=== PATIENT | female | born 1975 | race Caucasian/White ===

== ENCOUNTER → 2019-05-02 08:48 | Outpatient (CLI) | payer OTHER, MEDICAID, SELFPAY ==
--- NOTE | 2019-05-02 | DI.NM.S_ITS ---
PROCEDURE: ND UPTAKE AND SCAN RADIOPHARMACEUTICAL: 370 ?Ci I-123 sodium iodide by mouth. INDICATIONS: Toxic nodular goiter TECHNIQUE: I-123 sodium iodide was administered orally. Anterior neck images were obtained, and iodine uptake by the thyroid gland calculated using fire fighting equipment specialist's software. COMPARISON: [place], [place], THYROID UPTAKE AND SCAN, 08/03/2017, 9:36. FINDINGS: Morphology: The left thyroid lobe is again noted to be enlarged with overall increased uptake in mid to lower pole not significantly changed from previous study and is correlating with a large complex solid and cystic mass in this region seen on previous ultrasound. Suppressed activity in right thyroid lobe is again seen and unchanged. Uptake: 6 hour thyroid uptake is 30.5%, normal ranges are from 6-18%. 24 hour thyroid uptake is 44.5%; normal ranges are from 10-30%. IMPRESSION: 1. Increased uptake in mid total lower pole of left thyroid lobe likely related to large complex solid and cystic mass seen on previous ultrasound in this region. Focal decreased activity in the inferior pole of left thyroid lobe is again seen and unchanged likely related to cystic component. Overall appearance of bilateral thyroid lobes are not significantly changed from prior study in 2018. 2. Elevated 6 hour and 24-hour radioactive iodine uptakes. 3. Suppressed activity in right thyroid lobe. Dictated by: Jovan Rubi M.D. on 05/03/2019 at 11:10 Approved by: Jovan Rubi M.D. on 05/03/2019 at 11:16
== END ==
PROVIDERS: PCP Family Medicine; Visit Provider Internal Medicine Endocrinology, Diabetes & Metabolism
DX: E05.20 Thyrotoxicosis with toxic multinodular goiter without thyrotoxic crisis or storm (principal)
CPT/HCPCS: 78014; A9516

== ENCOUNTER → 2021-01-29 11:44 | Outpatient (CLI) | payer OTHER, MEDICAID, SELFPAY ==
[2021-01-29 20:43] LABS: Thyroid Stimulating Hormone 0.766 uIU/mL (0.47-4.68)
== END ==
PROVIDERS: PCP Family Medicine; Visit Provider Internal Medicine Endocrinology, Diabetes & Metabolism
DX: E89.0 Postprocedural hypothyroidism (principal)
CPT/HCPCS: 84443

== ENCOUNTER → 2021-06-05 09:33 | Outpatient (CLI) | payer OTHER, MEDICAID, SELFPAY ==
[2021-06-05 20:40] LABS: Thyroid Stimulating Hormone 1.74 uIU/mL (0.47-4.68)
== END ==
PROVIDERS: PCP Family Medicine; Visit Provider Internal Medicine Endocrinology, Diabetes & Metabolism
DX: E89.0 Postprocedural hypothyroidism (principal)
CPT/HCPCS: 84443

== ENCOUNTER → 2021-07-29 11:50 | Outpatient (CLI) | payer OTHER, MEDICAID, SELFPAY ==
[2021-07-29 20:00] LABS: COVID19 - ORCAS (NP or Nasal) Negative (Negative)
== END ==
PROVIDERS: PCP Family Medicine; Visit Provider Physician Assistant
DX: Z20.822 Contact with and (suspected) exposure to COVID-19 (principal); R05.9 Cough, unspecified
CPT/HCPCS: C9803; U0003

== ENCOUNTER → 2022-07-13 08:38 | Outpatient (CLI) | payer OTHER, MEDICAID, SELFPAY ==
[2022-07-13 19:25] LABS: Alanine Aminotransferase 22 IU/L (<35); Albumin 3.9 g/dL (3.5-5.0); Albumin Globulin Ratio 1.2 (1.0-2.8); Alkaline Phosphatase 57 U/L (38-126); Aspartate Aminotransferase 21 IU/L (14-36); Bilirubin Total 0.3 mg/dL (0.2-1.3); Blood Urea Nitrogen 12 mg/dL (7-17); Calcium 8.8 mg/dL (8.4-10.2); Carbon Dioxide 29 mmol/L (22-32); Chloride 98 mmol/L (98-107); Cholesterol 224 mg/dL (140-199); Estimated Glomerular Filt Rate > 60 mL/min (>60); Globulin 3.3 g/dL (1.7-4.1); Glucose 101 mg/dL (70-100); HDL Cholesterol 60 mg/dL (40-60); HEMOLYSIS < 15 (0-50); LDL Cholesterol Calculated 132 mg/dL (<100); Potassium 4.1 mmol/L (3.4-5.1); Sodium 135 mmol/L (137-145); Total Protein 7.2 g/dL (6.3-8.2); Triglycerides 161 mg/dL (35-150)
[2022-07-13 19:36] LABS: Free T4, Direct Thyroxine 0.86 ng/dL (0.78-2.19)
[2022-07-13 19:50] LABS: Thyroid Stimulating Hormone 4.85 uIU/mL (0.47-4.68)
[2022-07-15 15:12] LABS: Anti Thyroglobulin Antibody <1.0 IU/mL (0.0-0.9); Thyroid Peroxidase Antibodies 162 IU/mL (0-34)
== END ==
PROVIDERS: PCP Physician Assistant; Visit Provider Physician Assistant
DX: Z13.220 Encounter for screening for lipoid disorders (principal); E03.9 Hypothyroidism, unspecified; E89.0 Postprocedural hypothyroidism
CPT/HCPCS: 80053; 80061; 84439; 84443; 86376; 86800

== ENCOUNTER → 2022-09-29 09:07 | Outpatient (CLI) | payer OTHER, MEDICAID, SELFPAY ==
[2022-09-29 19:24] LABS: BUN Creatinine Ratio 15.4 (6-22); Blood Urea Nitrogen 12 mg/dL (7-17); Calcium 9.5 mg/dL (8.4-10.2); Carbon Dioxide 30 mmol/L (22-32); Chloride 101 mmol/L (98-107); Estimated Glomerular Filt Rate > 60 mL/min (>60); Glucose 105 mg/dL (70-100); HEMOLYSIS < 15 (0-50); Potassium 4.3 mmol/L (3.4-5.1); Sodium 138 mmol/L (137-145)
[2022-09-29 19:49] LABS: Free T4, Direct Thyroxine 1.35 ng/dL (0.78-2.19)
[2022-09-29 20:03] LABS: Thyroid Stimulating Hormone 1.67 uIU/mL (0.47-4.68)
[2022-10-01 20:01] LABS: Anti Thyroglobulin Antibody <1.0 IU/mL (0.0-0.9); Thyroid Peroxidase Antibodies 185 IU/mL (0-34)
== END ==
PROVIDERS: PCP Physician Assistant; Visit Provider Physician Assistant
DX: E89.0 Postprocedural hypothyroidism (principal); R76.8 Other specified abnormal immunological findings in serum
CPT/HCPCS: 80048; 84439; 84443; 86376; 86800

== ENCOUNTER → 2022-11-22 12:22 | Day surgery (SDC) | payer OTHER, MEDICAID, SELFPAY ==
[2022-11-19 09:39] VITALS: BMI 28.2
[2022-11-22] VITALS (7 sets, daily range): BP systolic 119–146; BP diastolic 72–90; PULSE 51–95; RESP 10–109; TEMP 36.1–36.6; O2SAT 72–100; BMI 28.2
--- NOTE | 2022-11-22 | PATH_ITS ---
[facility] Accession Number: [id number] No. of containers..03 Tissue . 01 Material submitted: . PART A: cervix - EXTERNAL PART B: cervix - INTERNAL PART C: endocervix - ENDOCERVICAL CURRETTINGS . 01 Diagnosis: A. Uterine Cervix, External, LEEP Excision: Transformation zone mucosa with high-grade squamous intraepithelial lesion (HSIL, MARJ 2-3/moderate to severe dysplasia) undermining endocervical epithelium. HSIL appears free from inked/cauterized tissue edges. Negative for glandular dysplasia and invasive malignancy. . B. Uterine Cervix, Internal, LEEP Excision: Endocervical mucosa (predominantly), with atypical squamous metaplasia, favor reactive changes. No definitive evidence of squamous dysplasia, glandular dysplasia, or malignancy. . C. Endocervix, Curettage: Detached fragments of upper benign endocervical mucosa mixed with strips of benign lower uterine segment endometrium. [facility] 11/29/2022 1439 Local . 01 Electronically signed: . Raquel Bermudez MD, Pathologist NPI- [id number] . 01 Gross description: . A. The specimen is received in formalin labeled with the patient's name, , and external, and consists of an unoriented circular fragment of cervix, measuring 2.2 x 1.9 x 0.4 cm. The ectocervix is pink-esquivel, smooth and glistening with a slit-like cervical os that measures 0.7 cm in diameter. The endocervical margin is inked orange while the remaining stromal margins are inked blue. The specimen is radially sectioned and submitted entirely in sequential quadrants in cassettes A1-A4. B. The specimen is received in formalin labeled with the patient's name, , and internal, and consists of an unoriented circular fragment of cervix measuring 1.5 x 1.1 x 0.5 cm. No ectocervix is identified. The slightly concave surface is inked black, while the presumed endocervical margin is inked orange and the remaining convex surface is inked blue. The specimen is radially sectioned and submitted entirely in sequential quadrants in cassettes B1-B4. C. The specimen is received in formalin labeled with the patient's name, , and endocervical curettings and consists of multiple esquivel to brown soft tissue fragments, admixed with mucohemorrhagic material, aggregating to 1.7 x 1.1 x 0.1 cm. The specimen is filtered into a biopsy bag. Submitted entirely in cassette C1. ([id number]) /[facility] 11/23/2022 1732 Local . 01 Microscopic: . P16 and Ki67 immunostains are performed on block B2 in order to evaluate the atypical squamous metaplasia for moderate dysplasia, with appropriately staining external controls. The area of interest demonstrates no overexpression of p16 and mild elevation of Ki67, in support of the diagnosis. . * This test was developed and its performance characteristics determined by [employer]. It has not been cleared or approved by the U.[place]. Food and Drug Administration. The FDA has determined that such clearance or approval is not necessary. This test is used for clinical purposes. It should not be regarded as investigational or for research. . 01 Pathologist provided ICD-10: N87.1, D06.1 . 01 CPT . 828986, 420780, 651487, M48105, N33986 Specimen Comment: A courtesy copy of this report has been sent to [phone] Performed at: 01 [facility] [address] [place] [address], [place], [place] [id number] MD Clarence Linares MD Phone: [phone]
[2022-11-22] MEDS: LACTATED RINGERS 1,000 ML 100 ML IV (12:49)
--- NOTE | 2022-11-22 12:56 | PM.PREOP ---
Pre-operative Note COVID-19 Criteria for continued procedure: Possibility delay results in more complex future surgery or treatment Interval Note History & Physical reviewed/Exam performed by Physician: Yes Changes to H&P: No
--- NOTE | 2022-11-22 12:56 | PM.GYNHP.1 ---
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 for LEEP procedure [facility] Medical History (Updated 11/22/22 @ 12:58 by Jennifer Akbar MD) MARJ II (cervical intraepithelial neoplasia II) Encounter for hepatitis C screening test for low risk patient Health maintenance examination Surgical History (Updated 07/19/22 @ 21:39 by Joan Minaya) Skin cancer (~2001) Family History (Updated 07/19/22 @ 21:41 by Joan Minaya) Mother Diabetes mellitus Hypertension Grandfather Cancer Grandmother Cancer Grandfather Cancer Social History household members: significant other Smoking Status: Former smoker alcohol intake: current Meds Home Medications and Allergies Home Medications Medication Instructions Recorded Confirmed Type levothyroxine 75 mcg capsule 75 mcg PO DAILY #90 caps 10/13/22 11/22/22 Rx Allergies Allergy/AdvReac Type Severity Reaction Status Date / Time Penicillins Allergy Unknown UNKNOWN Verified 11/22/22 12:37 Review of Systems Review of Systems Narrative: Patient denies headaches, fevers, chest pains or shortness of breath. She is having regular menses. No problems with intercourse. No pain. Exam Vital Signs (past 8 hours): - 11/22/22 12:39 Temperature 97.5 F L Pulse Rate 77 Respiratory Rate 20 Blood Pressure 146/90 H Pulse Oximetry 100 Oxygen Delivery Method Room Air Oxygen Delivery Method Room Air Narrative Exam Narrative: HEENT exam within normal limits. Lungs are clear to auscultation percussion. Heart is regular rate and rhythm no S3-S4 murmurs. Abdomen is soft, nontender with no palpable organomegaly. Pelvic exam not repeated. Extremities without edema and nontender. Assessment & Plan Assessment and plan (1) MARJ II (cervical intraepithelial neoplasia II): Status: Acute (2) High risk HPV infection: Status: Acute Assessment & Plan narrative: LEEP procedure. Consent form reviewed with the patient. Minimal risk of reaction to medication or anesthesia. Minimal risk inadvertent injury to tissue from the cautery. Minimal risk of bleeding or infection. Patient is aware that if there is actual invasive cancer she will need additional surgery. Consent form signed and questions answered. Postop instructions reviewed.
[2022-11-22] MEDS: BUPIVACAINE 0.5% (PF) 10 ML VIAL 30 ML INJ (13:52)
--- NOTE | 2022-11-22 13:55 | P.OP_ITS ---
Operative Date/Time/Diagnoses Date of procedure: 11/22/22 Time of procedure: 13:55 Pre-op diagnosis: MARJ 2 and high-risk HPV cervical biopsy Post-op diagnosis: same Procedure & Clinicians Procedure: LEEP procedure with ECC Same procedure as scheduled: Yes Indications: MARJ 2 on colpo directed biopsies with high-risk HPV Surgeon: Jennifer Akbar Click Yes if Unassisted: Yes Anesthesia Type: General Operative Notes Findings: Normal exam under anesthesia with no areas of nonstaining on the cervix with Lugol's Closure Type: not applicable Specimen(s): other (External LEEP, internal LEEP, ECC) Estimated Blood Loss (mL): 5 Blood products transfused: none Procedure in detail: Patient was brought to the operating room she underwent general anesthesia. She was placed in low stirrups. A coated bivalve speculum was placed into the vagina. The cervix was injected with 0.5% Marcaine with epinephrine. A single- tooth tenaculum was placed on the anterior lip of the cervix. The cervix was stained with Lugol's. The loop set at 60 W of cutting was used to remove the entire squamocolumnar junction. A slightly deeper section was taken of the endocervical canal. An ECC was performed. The tissue was cauterized external to the LEEP with ball cautery to extend the treatment zone. Monsel's was placed. The patient went to recovery room in good condition. Counts of instruments and sponges were correct. The tissue was sent for pathology. Complications: none Post-operative Condition: stable Disposition: same day surgery Plan for aftercare: Treatment and follow-up based on results biopsy.
[2022-11-22] MEDS: ACETAMINOPHEN 325 MG TABLET 975 MG PO (14:52)
== END | disposition home or self-care (01) ==
PROVIDERS: PCP Physician Assistant; Referring Provider Specialist; Visit Provider Specialist
PROC: 0UBC7ZZ Excision of Cervix, Via Natural or Artificial Opening (ICD-10-PCS; CPT 57522; principal; 2022-11-22 13:30)
DX: N87.1 Moderate cervical dysplasia (principal); R87.810 Cervical high risk human papillomavirus (HPV) DNA test positive
CPT/HCPCS: 57522; J1100; J1885; J2250; J2405; J2704; J3010

== ENCOUNTER → 2023-04-06 11:32 | Outpatient (CLI) | payer OTHER, MEDICAID, SELFPAY ==
[2023-04-06 20:14] LABS: Hemoglobin A1C% w Est Avg Glu 5.4 % (4.0-6.0)
[2023-04-06 20:35] LABS: Free T4, Direct Thyroxine 1.19 ng/dL (0.78-2.19)
[2023-04-06 20:48] LABS: Thyroid Stimulating Hormone 1.47 uIU/mL (0.47-4.68)
== END ==
PROVIDERS: PCP Family Medicine; Visit Provider Physician Assistant
DX: E89.0 Postprocedural hypothyroidism (principal)
CPT/HCPCS: 83036; 84439; 84443

== ENCOUNTER → 2023-09-15 12:59 | Outpatient (CLI) | payer OTHER, MEDICAID, SELFPAY ==
[2023-09-15 19:50] LABS: Thyroid Stimulating Hormone 1.32 uIU/mL (0.47-4.68)
== END ==
PROVIDERS: PCP Family Medicine; Visit Provider Family Medicine
DX: E03.9 Hypothyroidism, unspecified (principal)
CPT/HCPCS: 84443

== ENCOUNTER 2024-01-17 09:34 | Day surgery (SDC) | payer OTHER, MEDICAID, SELFPAY ==
[2024-01-17 09:55] VITALS: BP 142/87; PULSE 82; RESP 16; TEMP 36.7; O2SAT 98
[2024-01-17] MEDS: LACTATED RINGERS 1,000 ML 42 ML IV (10:01)
--- NOTE | 2024-01-17 10:20 | PM.HP.1 ---
History of Present Illness History of Present Illness Date Patient Seen: 01/17/24 Time Patient Seen: 10:20 Chief complaint: Screening Colonoscopy Narrative: 48-year-old woman here for 1st time screening colonoscopy. No family history of colon cancer. No abdominal concerns today. [facility] Medical History Alcohol dependence History of basal cell carcinoma (BCC) MARJ III (cervical intraepithelial neoplasia grade III) with severe dysplasia MARJ II (cervical intraepithelial neoplasia II) Encounter for hepatitis C screening test for low risk patient Health maintenance examination Surgical History Skin cancer (~2001) Family History Mother Diabetes mellitus Hypertension Grandfather Cancer Grandmother Cancer Grandfather Cancer Social History household members: significant other Smoking Status: Former smoker alcohol intake: current Meds Home Medications and Allergies Home Medications Medication Instructions Recorded Confirmed Type levothyroxine 75 mcg capsule 75 mcg PO DAILY #90 caps 09/19/23 01/17/24 Rx Allergies Allergy/AdvReac Type Severity Reaction Status Date / Time Penicillins Allergy Unknown UNKNOWN Verified 08/26/23 14:09 Exam Vital Signs (past 8 hours): - 01/17/24 09:55 Temperature 98.1 F Pulse Rate 82 Respiratory Rate 16 Blood Pressure 142/87 H Pulse Oximetry 98 Oxygen Delivery Method Room Air Oxygen Delivery Method Room Air Narrative Exam Narrative: General adult woman alert oriented no acute distress Chest nonlabored respiration Extremities warm well perfused Assessment & Plan Assessment & Plan narrative: The patient requires colorectal screening and colonoscopy is recommended. Technical details were discussed. Risks, benefits, alternatives explained. Risks including but not limited to myocardial infarction, aspiration, bleeding, pain, missed lesion, incomplete examination, need for further radiographic studies, intestinal injury, and need for major abdominal surgery were discussed. All questions were answered to their satisfaction, and they are in agreement with this plan.
--- NOTE | 2024-01-17 10:21 | P.OP.COLON_ITS ---
Operative Date/Time/Diagnoses Date of procedure: 01/17/24 Time of procedure: 10:21 Pre-op diagnosis: Colorectal screening Procedure & Clinicians Study performed: Screening colonoscopy Same procedure as scheduled: Yes Indications: Colorectal screening Surgeon: Dariel Irving Procedure Notes Procedure in detail: The history and physical was performed/updated and the patient is ASA class is 2. The procedure was discussed in detail with the patient. Potential risks co mplications including infection, bleeding, missed diagnosis, perforation, need for surgery, and were explained. Their questions were answered and informed consent was obtained. Patient was brought to the procedure room and placed standard monitoring equipment. The patient's vital signs were monitored continuously throughout the entire procedure. Prior to starting time-out was performed. The patient was placed in the left lateral recumbent position. Procedural sedation was administered by anesthesia. Examination began with a thorough inspection of the perianal area there was no evidence of fissures, fistulae, external hemorrhoids or cutaneous malignancy. The colonoscopy scope was then placed into the anal canal and was advanced to the cecum, which was identified by the ileocecal valve, the appendiceal orifice and the confluence of the taenia. The scope was then slowly withdrawn examining colon thoroughly in all directions, irrigating it of any residual stool. The scope was retroflexed within the rectum The patient tolerated the procedure well. They will be discharged once criteria are met. The prep was of good/excellent quality. The withdrawl time was 7 minutes. FINDINGS * No polyps or inflammation * Internal hemorrhoids Specimen(s): none sent Impression: Normal colonoscopy Post-procedure Recommendations: Colonoscopy in 10 years Disposition: same day surgery
[2024-01-17 10:50] VITALS: BP 112/75; PULSE 80; RESP 16; TEMP 36.2; O2SAT 96
[2024-01-17 10:55] VITALS: BP 109/81; PULSE 77; PULSE 78; RESP 14; RESP 16; O2SAT 97; O2SAT 98
[2024-01-17 11:00] VITALS: BP 108/78; PULSE 69; RESP 12; O2SAT 97
[2024-01-17 11:07] VITALS: BP 110/81; PULSE 56; RESP 14; O2SAT 99
== END 2024-01-17 11:28 | disposition home or self-care (01) ==
PROVIDERS: PCP Family Medicine; Referring Provider Surgery; Visit Provider Surgery
PROC: 0DJD8ZZ Inspection of Lower Intestinal Tract, Via Natural or Artificial Opening Endoscopic (ICD-10-PCS; CPT 45378; principal; 2024-01-17 10:45)
DX: Z12.11 Encounter for screening for malignant neoplasm of colon (principal); K64.8 Other hemorrhoids
CPT/HCPCS: 45378; J2704

== ENCOUNTER → 2024-10-03 10:25 | Outpatient (CLI) | payer OTHER, SELFPAY ==
[2024-10-03 19:52] LABS: Cholesterol 256 mg/dL (140-199); Glucose 107 mg/dL (70-100); HDL Cholesterol 73 mg/dL (40-60); LDL Cholesterol Calculated 163 mg/dL (<100); Triglycerides 102 mg/dL (35-150)
[2024-10-03 20:04] LABS: Free T4, Direct Thyroxine 1.01 ng/dL (0.78-2.19)
[2024-10-03 20:18] LABS: Thyroid Stimulating Hormone 1.49 uIU/mL (0.47-4.68)
== END ==
PROVIDERS: PCP Family Medicine; Visit Provider Family Medicine
DX: E89.0 Postprocedural hypothyroidism (principal); Z13.1 Encounter for screening for diabetes mellitus; Z13.6 Encounter for screening for cardiovascular disorders
CPT/HCPCS: 80061; 82947; 84439; 84443

== ENCOUNTER → 2025-04-22 10:34 | Outpatient (CLI) | payer OTHER, SELFPAY ==
[2025-04-22 18:53] LABS: Add Manual Diff / Slide Review NO; Hematocrit 41.8 % (36-46); Hemoglobin 14.1 g/dL (12.0-16.0); Lymphocytes Absolute Auto 1800 /uL (1100-4500); Mean Corpuscular HGB Conc 33.8 % (30-36); Mean Corpuscular Hemoglobin 30.5 PG (26-34); Mean Corpuscular Volume 90.3 fL (80-100); Platelet Count 240 X10^3/uL (150-400)
[2025-04-22 19:31] LABS: Blood Urea Nitrogen 14 mg/dL (7-17); Calcium 9.8 mg/dL (8.4-10.2); Carbon Dioxide 31 mmol/L (22-32); Chloride 101 mmol/L (98-107); Estimated Glomerular Filt Rate > 60 mL/min (>60); Glucose 108 mg/dL (70-99); HEMOLYSIS < 15 (0-50); Potassium 4.4 mmol/L (3.4-5.1); Sodium 139 mmol/L (137-145)
[2025-04-22 20:00] LABS: TSH w/ Reflex to FT4 1.98 uIU/mL (0.47-4.68)
== END ==
PROVIDERS: PCP Family Medicine; Visit Provider Family Medicine
DX: E05.20 Thyrotoxicosis with toxic multinodular goiter without thyrotoxic crisis or storm (principal); E89.0 Postprocedural hypothyroidism; E78.5 Hyperlipidemia, unspecified; R76.89 Other specified abnormal immunological findings in serum
CPT/HCPCS: 80048; 84443; 85025